=== PATIENT | male | born 1990 | race Caucasian/White ===

== ENCOUNTER 2018-07-13 15:13 | Emergency (ER) | payer OTHER ==
[2018-07-13 15:21] VITALS: BP 144/76
--- NOTE | 2018-07-13 15:34 | EDPHY ---
H & P Time Seen by Provider: 07/13/18 15:25 HPI/ROS: CHIEF COMPLAINT: Head injury HISTORY OF PRESENT ILLNESS: The patient is a 27-year-old male who presents emergency department after sustaining a head injury. Patient works at my [employer] store. He was standing on a 3 ft stool when a shelf gave way causing him the fall. The patient thinks he struck the back of his head. He did not lose consciousness. He has no significant headache at this time. He has no new focal deficit. The patient has baseline cerebral palsy and states that he is at baseline. Patient denies neck pain. No nausea vomiting. REVIEW OF SYSTEMS: 10 systems were reveiwed and are negative with the exception of the elements mentioned in the history of present illness. Past Medical/Surgical History: Includes cerebral palsy, kidney stones Past surgical history: Bilateral leg surgery Social history: Patient does not smoke Smoking Status: Never smoked Physical Exam: Vitals noted GENERAL: Well-appearing, in no acute distress, alert. HEAD: No evidence of trauma. Patient has a hold scar on his forehead. EYES: PERRLA, EOMI, normal to inspection. ENT: Airway intact, no dental or oral injury, no malocclusion, no hemotympanum , normal external examination. NECK: The trachea is midline. There is no crepitus. The C-spine is nontender. NEXUS criteria is negative (no midline tenderness, no distracting injury, no altered mental status, no recent alcohol use, no focal neurologic deficit). RESPIRATORY: Clear to auscultation bilaterally, no rales, rhonchi or wheezing. CVS: Regular rate and rhythm, no rubs, murmurs, or gallops. ABDOMEN: Soft, nontender, nondistended, no bruising or abrasions. Pelvis: Stable. No tenderness palpation. BACK: Normal to inspection, no spinal tenderness, no spinal step off, no notable bruising or abrasions. SKIN: Normal color, warm, dry. No pallor or diaphoresis. EXTREMITIES: Atraumatic, neurovascularly intact distally in all extremities, hips with full range of motion, moves all extremities freely. NEURO/PSYCH: Alert and oriented x 3, GCS 15, normal mood and affect, normal motor sensory exam. Constitutional: Initial Vital Signs Temperature (C) 36.7 C 07/13/18 15:17 Heart Rate 88 07/13/18 15:17 Respiratory Rate 18 07/13/18 15:17 Blood Pressure 144/76 H 07/13/18 15:17 O2 Sat (%) 97 07/13/18 15:17 O2 Delivery Mode Room Air Allergies/Adverse Reactions: No Known Allergies Allergy (Unverified 09/29/11 12:42) Home Medications: Medication Instructions Recorded NK [No Known Home Meds] 07/13/18 Medical Decision Making ED Course/Re-evaluation: In the emergency department I discussed possible etiologies with the patient. I answered all his questions. This time I do not feel he needs head CT imaging. I discussed the possible diagnosis of concussion and closed head injury. Patient was given information booklet. I answered all his questions. He was given warnings prior to leaving. Differential Diagnosis: My differential includes but is not limited to closed-head injury, contusion, concussion, subarachnoid hemorrhage, subdural hematoma, epidural hematoma Departure - Departure Disposition: Home, Routine, Self-Care Clinical Impression: Head injury Qualifiers: Encounter type: initial encounter Qualified Code(s): S09.90XA - Unspecified injury of head, initial encounter Condition: Good Instructions: Head Injury (ED) Additional Instructions: Return with increasing headache, weakness, numbness, visual change, vomiting or any other concerns. Referrals: Work Comp Referral [facility] [Outside] - 3-4 days, if not improved Stand Alone Forms: Work Excuse
== END 2018-07-13 15:59 | disposition home or self-care (01) ==
DX: S09.90XA Unspecified injury of head, initial encounter (principal); G80.9 Cerebral palsy, unspecified; W01.10XA Fall on same level from slipping, tripping and stumbling with subsequent striking against unspecified object, initial encounter; Y92.9 Unspecified place or not applicable; Y93.9 Activity, unspecified; Y99.9 Unspecified external cause status